=== PATIENT | male | born 1940 | race Caucasian/White ===

== ENCOUNTER 2018-07-04 10:20 | Outpatient (CLI) | payer MEDICARE | END 2018-07-04 10:21 | disposition home or self-care (01) | LOC: BICRAD 10:20 | PROVIDERS: ATTEND Internal Medicine Cardiovascular Disease | DX: I48.0 Paroxysmal atrial fibrillation (principal) | CPT/HCPCS: 36415; 71046; 80053; 80061; 84443; 85025 ==

== ENCOUNTER 2019-02-19 13:56 | Outpatient (CLI) | payer MEDICARE ==
[2019-02-19 16:00] LABS: INR-International Normal Ratio 1.1; PTT 30.6 SEC (22.9-36.1); Prothrombin Time 14.2 SEC (12.0-14.7)
[2019-02-19 16:55] LABS: #Eosinphils 0.5 thou/uL (0.0-0.7); #Lymphocytes 2.8 thou/uL (1.20-3.40); #Monocytes 1.1 thou/uL (0.11-0.59); #Neutrophils 6.6 thou/uL (1.40-6.50); %Eosinophils 4.5 % (0.0-10.0); %Lymphocytes 25.7 % (21.0-51.0); %Monocytes 10.3 % (0.0-10.0); %Neutrophils 59.5 % (42.0-75.0); Hemoglobin 15.6 g/dL (14.0-18.0); Mean Corpuscular HGB CONC 32.6 g/dL (32.0-36.0); Mean Corpuscular Volume 95.1 fL (78.0-98.0); Mean Platelet Volume 7.6 fL (7.4-10.4); Platelet Count 290 thou/uL (130-400); RBC Distribution Width 13.1 % (11.5-14.5); Red Blood Cell (RBC) Count 5.02 mill/uL (4.70-6.10)
[2019-02-19 16:56] LABS: Anion Gap 16 mmol/L (10-20); BUN (Urea Nitrogen) 15 mg/dL (8.4-25.7); Calc. Creatinine Clearance 0 mL/min (70-130); Calcium 8.9 mg/dL (7.8-10.44); Carbon Dioxide 23 mmol/L (23-31); Chloride 105 mmol/L (98-107); Estimated GFR-MDRD Greater than 90; Glucose 90 mg/dL (83-110); Potassium 4.3 mmol/L (3.5-5.1); Sodium 140 mmol/L (136-145)
== END 2019-02-19 13:57 | disposition home or self-care (01) ==
LOC: LABBT 13:56
PROVIDERS: ATTEND Internal Medicine Cardiovascular Disease
DX: Z01.812 Encounter for preprocedural laboratory examination (principal); I48.3 Typical atrial flutter
CPT/HCPCS: 80048; 85025; 85610; 85730

== ENCOUNTER 2019-02-22 05:45 | Day surgery (SDC) | payer MEDICARE ==
[2019-02-19 14:26] VITALS: BMI 40.3
[2019-02-22] MEDS ORDERED: Lidocaine 1% (PF) 30 ML VIAL ONE (07:10)
[2019-02-22] MEDS ORDERED: PROPOFOL 40 ML ONE (07:10)
--- NOTE | 2019-02-22 08:49 | OP ---
DATE OF PROCEDURE: 02/22/2019 PREPROCEDURE DIAGNOSIS: Atrial flutter. PROCEDURE PERFORMED: Direct current synchronized cardioversion. SUMMARY: Mr. Payan is a pleasant 78-year-old white gentleman, who comes to the outpatient area for a planned cardioversion. He has been on Eliquis for a long time for history of paroxysmal atrial fibrillation. Currently, he was in atrial flutter, which was a new diagnosis, so he was brought for a cardioversion. The Anesthesiology Department provided with sedation for the patient, please see their notes for details. After adequate sedation was achieved, one single synchronized shock was delivered at 100 joules successfully converting him from atrial flutter into sinus rhythm. The patient tolerated the procedure well. RECOMMENDATIONS: 1. Continue flecainide. 2. Continue full anticoagulation with Eliquis. 3. Refer to electrophysiology for consideration of an ablation. Job ID: [id number]
[2019-02-22] MEDS ORDERED: Lidocaine 1% PF 5 ML VIAL ONE (16:00)
[2019-02-22] MEDS ORDERED: PROPOFOL 200 MG/20 ML VIAL ONE (16:00)
== END 2019-02-22 09:50 | disposition home or self-care (01) ==
LOC: CCL 05:45
PROVIDERS: ATTEND Internal Medicine Cardiovascular Disease
PROC: 5A2204Z Restoration of Cardiac Rhythm, Single (ICD-10-PCS; principal; 2019-02-22)
DX: I48.3 Typical atrial flutter (principal); I48.0 Paroxysmal atrial fibrillation; G47.30 Sleep apnea, unspecified; I10 Essential (primary) hypertension; E78.5 Hyperlipidemia, unspecified; Z87.891 Personal history of nicotine dependence; Z79.01 Long term (current) use of anticoagulants; Z79.82 Long term (current) use of aspirin; Z79.899 Other long term (current) drug therapy; Z88.2 Allergy status to sulfonamides; Z88.5 Allergy status to narcotic agent; Z88.8 Allergy status to other drugs, medicaments and biological substances; Z88.7 Allergy status to serum and vaccine
CPT/HCPCS: 92960; 93005; 93010; J2001; J2704

== ENCOUNTER 2019-03-13 17:23 | Inpatient (IN) | payer MEDICARE ==
[2019-03-13 19:08] LABS: #Basophils 0.1 thou/uL (0.0-0.2); #Eosinphils 0.4 thou/uL (0.0-0.7); #Lymphocytes 3.3 thou/uL (1.20-3.40); #Monocytes 1.3 thou/uL (0.11-0.59); #Neutrophils 10.5 thou/uL (1.40-6.50); %Basophils 0.4 % (0.0-1.0); %Eosinophils 2.3 % (0.0-10.0); %Lymphocytes 21.1 % (21.0-51.0); %Monocytes 8.5 % (0.0-10.0); %Neutrophils 67.6 % (42.0-75.0); Hemoglobin 12.6 g/dL (14.0-18.0); Mean Corpuscular HGB CONC 33.1 g/dL (32.0-36.0); Mean Corpuscular Hemoglobin 31.1 pg (27.0-31.0); Mean Corpuscular Volume 93.8 fL (78.0-98.0); Mean Platelet Volume 7.3 fL (7.4-10.4); Platelet Count 323 thou/uL (130-400); RBC Distribution Width 13.6 % (11.5-14.5); Red Blood Cell (RBC) Count 4.07 mill/uL (4.70-6.10); White Blood Cell (WBC) Count 15.6 thou/uL (4.8-10.8)
[2019-03-13 19:13] LABS: INR-International Normal Ratio 1.2; PTT 27.6 SEC (22.9-36.1)
[2019-03-13 19:32] LABS: ALT (SGPT) 18 U/L (8-55); AST (SGOT) 17 U/L (5-34); Albumin 3.9 g/dL (3.4-4.8); Alkaline Phosphatase 65 U/L (40-150); Anion Gap 16 mmol/L (10-20); BUN (Urea Nitrogen) 33 mg/dL (8.4-25.7); Bilirubin, Total 0.6 mg/dL (0.2-1.2); Calc. Creatinine Clearance 0 mL/min (70-130); Calcium 9.1 mg/dL (7.8-10.44); Carbon Dioxide 24 mmol/L (23-31); Chloride 103 mmol/L (98-107); Estimated GFR-MDRD Greater than 90; Globulin 2.5 g/dL (2.4-3.5); Glucose 122 mg/dL (83-110); Potassium 4.7 mmol/L (3.5-5.1); Protein, Total 6.4 g/dL (5.8-8.1); Sodium 138 mmol/L (136-145)
[2019-03-13] MEDS ORDERED: Ondansetron PF 4 MG/2 ML Vial ONE (21:59)
[2019-03-13] MEDS ORDERED: Sodium Chloride 0.9% 100 ML ONE (21:59)
[2019-03-13] MEDS ORDERED: Pantoprazole 40 MG VIAL ONE ×2 (21:59→22:09)
[2019-03-13] MEDS ORDERED: Sodium Chloride 0.9% 1,000 ML IV SCH (22:15)
[2019-03-13] MEDS ORDERED: Ondansetron PF 4 MG/2 ML Vial SLOW IVP SCH (22:15)
[2019-03-13] MEDS ORDERED: Pantoprazole 80 MG, Admixture Fee 1 EACH in Sodium Chloride 0.9% 100 ML IVPB SCH (22:30)
[2019-03-14 01:33] VITALS: BMI 40.4
[2019-03-14] MEDS ORDERED: Ondansetron PF 4 MG/2 ML Vial IVP PRN ×2 (01:57→11:00)
[2019-03-14] MEDS ORDERED: HYDROcodone/Acetaminophen 5/325 mg Tablet PO PRN ×2 (01:57)
[2019-03-14] MEDS ORDERED: Ondansetron ODT 4 MG TAB SL PRN (01:57)
[2019-03-14] MEDS ORDERED: Acetaminophen 325 MG TAB PO PRN (01:57)
[2019-03-14] MEDS ORDERED: Sodium Chloride 0.9% 1,000 ML IV SCH (02:00)
[2019-03-14 05:03] LABS: Hemoglobin 10.6 g/dL (14.0-18.0); Mean Corpuscular HGB CONC 32.9 g/dL (32.0-36.0); Mean Corpuscular Hemoglobin 30.8 pg (27.0-31.0); Mean Corpuscular Volume 93.5 fL (78.0-98.0); Mean Platelet Volume 7.2 fL (7.4-10.4); Platelet Count 253 thou/uL (130-400); RBC Distribution Width 13.7 % (11.5-14.5); Red Blood Cell (RBC) Count 3.46 mill/uL (4.70-6.10); White Blood Cell (WBC) Count 13.5 thou/uL (4.8-10.8)
[2019-03-14 05:20] LABS: Band 1 % (5-11); Hypochromia SLIGHT = 6-15 cells (100X) (0-5/hpf); Lymphocytes 16 % (21-51); MDiff Complete? YES; Monocytes 2 % (0-10); Neutrophil 81 % (42-75); Platelet Morphology Comment Appears Adequate
[2019-03-14] MEDS ORDERED: Citrucel 500 MG TAB PO PRN ×2 (07:43→08:16)
[2019-03-14] MEDS ORDERED: Furosemide 20 MG TAB PO SCH (07:45)
[2019-03-14] MEDS ORDERED: Metoprolol Tartrate 50 MG TAB PO SCH (09:00)
[2019-03-14] MEDS ORDERED: BERBERINE PO SCH (09:00)
[2019-03-14] MEDS ORDERED: VIT D3 VIT K PO SCH (09:00)
[2019-03-14] MEDS ORDERED: HOPS PO SCH (09:00)
[2019-03-14] MEDS ORDERED: Non-Formulary Item 1 EACH (Omega-3 Fatty Acids/Fish Oil [Fish Oil 1,000 Mg Capsule] 2 CAP PO SCH (09:00)
[2019-03-14] MEDS: Flecainide 50 MG TAB PO SCH ×2 (09:04→20:04)
[2019-03-14] MEDS: Pantoprazole 40 MG VIAL IVP SCH ×2 (09:06→20:05)
[2019-03-14] MEDS: Furosemide 20 MG TAB PO SCH (09:06)
[2019-03-14] MEDS: Metoprolol Tartrate 50 MG TAB PO SCH ×2 (09:06→20:05)
[2019-03-14] MEDS ORDERED: Acetaminophen 500 MG TAB PO PRN (11:00)
[2019-03-14] MEDS ORDERED: Ondansetron ODT 4 MG TAB PO PRN (11:00)
[2019-03-14] MEDS: Fish Oil 1,000 MG CAP PO SCH ×2 (11:13→20:03)
[2019-03-14 12:35] LABS: Hemoglobin 10.1 g/dL (14.0-18.0)
[2019-03-14 16:25] LABS: Bilirubin Negative (Negative); Blood, Urine Negative (Negative); Clarity CLEAR (Clear); Glucose, Urine (Dipstick) Negative (Negative); Leukocyte Small (Negative); Nitrite Negative (Negative); Protein, Urine (Dipstick) Negative (Neg-Trace); Specific Gravity, Urine 1.025 (1.002-1.036); Urobilinogen 0.2 mg/dL (0.2-1.0)
[2019-03-14 16:27] LABS: Bacteria/HPF None Seen HPF (None Seen); Hyaline Casts/LPF 0-3 HYALINE CAST LPF (0-3 Hyaline); RBC/HPF 0-3 HPF (0-3); Squamous Epithelial 0-3 HPF (0-3); WBC/HPF 0-3 HPF (0-3)
[2019-03-14 16:41] LABS: Urine Culture Reflex Yes Yes
--- NOTE | 2019-03-14 19:37 | HP ---
CHIEF COMPLAINT: Black tarry stools. HISTORY OF PRESENT ILLNESS: The patient had 1-2 black tarry stools, is on Eliquis, has a history of anal fissure and gastroesophageal reflux disease with prior ulceration on EGD in the past, only had minor cough for ancillary symptoms recently, denies any shortness of breath, chest pain, or fatigue, presented to emergency department for evaluation, was admitted for observation and trending of hemoglobin. At bedside, the patient has no acute complaints other than some right lower and upper quadrant pain, has not had a bowel movement since admission. ALLERGIES: 1. SULFA. 2. HYDROCODONE. 3. VICODIN. 4. BACTRIM. 5. HORSE PROTEIN. PAST MEDICAL HISTORY: 1. Coronary artery disease history. 2. Gastroesophageal reflux disease. 3. Iron deficiency anemia. 4. History of hyperlipidemia. 5. History of renal calculi. 6. Gout. 7. Hypertension. 8. History of anal fissures. 9. Paroxysmal atrial fibrillation, currently active. 10. Obstructive sleep apnea. 11. Varicose veins in bilateral lower extremities. 12. Last colonoscopy in 2016. HOME MEDICATIONS: 1. Allopurinol 300 mg once daily. 2. Furosemide 20 mg daily. 3. Atorvastatin 40 mg daily. 4. Ramipril 5 mg daily. 5. Ferrous sulfate 325 mg once a day. 6. Pepcid 20 mg p.r.n. heartburn. 7. Metoprolol 50 mg twice daily. 8. Citrucel 500 mg p.r.n. 9. Amiodarone 100 mg, recently changed to flecainide 50 mg twice daily. 10. Eliquis 5 mg. PAST SURGICAL HISTORY: 1. The patient is status post meniscectomy in 1970. 2. Carpal tunnel release in 1994. 3. Anal fissure removal in 2000. 4. Partial left adrenalectomy, benign findings. 5. Cataract surgery bilaterally. SOCIAL HISTORY: The patient is a nonsmoker. Lives with his spouse. Retired teacher. REVIEW OF SYSTEMS: Full formal review of systems: No fevers. No chills. No headache. No vision changes. Positive cough. No runny nose. No chest pains. No palpitations. No shortness of breath. Does have irregular pulse. Abdomen is mildly tender. No diarrhea or constipation. Positive dark tarry stools. Lower extremities with baseline varicose veins with edema. The patient denies any confusion or headaches. LABORATORY DATA: Admission hemoglobin of 12.6, trended last at noon today is 10.1, platelet count of 253, neutrophil percent of 81 on 13.5 white blood cell. INR of 1.2. Sodium of 138, potassium of 4.7, CO2 of 24, BUN of 33, creatinine of 0.82, glucose of 122, AST of 17, ALT of 18, albumin of 3.9. UA with reflex culture pending. The patient is O positive. Antibody screen negative. PHYSICAL EXAMINATION: VITAL SIGNS: Temperature of 98.5, pulse of 76, respiratory rate of 18, oxygen saturation 95% on room air, blood pressure of 112/64. GENERAL: The patient is alert and oriented, in no acute distress. HEENT: Head is normocephalic and atraumatic. Extraocular movements are intact. Sclerae are white. Oral mucosa is moist. Poor dentition noted. NECK: Supple. HEART: Irregularly irregular with no murmurs auscultated. LUNGS: Clear to auscultation bilaterally. Diminished secondary to body habitus. No wheezes, rhonchi, or rales. ABDOMEN: Protuberant. Bowel sounds are normal throughout. Minimal tenderness to right upper quadrant. No rebound or guarding present. EXTREMITIES: Lower extremities without cyanosis or formal edema. Varicose veins are present at baseline. NEUROLOGIC: The patient is alert and oriented x3. No focal deficits. Speech is normal. ASSESSMENT: 1. GI bleed. 2. Atrial fibrillation, on anticoagulation. 3. Obstructive sleep apnea. 4. Hypertension. 5. History of anal fissure. 6. Leukocytosis. 7. Anemia, currently felt to be secondary to GI bleed. He does have underpinnings of chronic iron deficiency anemia. 8. Gastroesophageal reflux disease. PLAN: Continuing the patient on therapy for acid reflux, currently from Pepcid to Protonix b.i.d. IV. Continuing home blood pressure medication. The patient bolused overnight with IV fluids. Appears to be appropriately hydrated. Volume no longer contracted, however, the patient remains with leukocytosis. Checking urinalysis. If normal, may represent a possible diverticulitis picture with leading to black and tarry, however, we will default to GI consultation for recommendations for upper and lower scopes. The patient does say he had a mild flare-up of acid reflux prior to admission. Continuing the patient's rhythm and volume control with Lasix and flecainide. The patient is on statin, holding any anticoagulation secondary to possible GI bleed as above. The patient is currently taking clear liquids in anticipation of possible scopes. We will follow up on hemoglobin trend. Continue CPAP as needed for obstructive sleep apnea. Monitor the patient's blood pressure and adjust accordingly. Job ID: [id number] MTDD
[2019-03-14 19:58] LABS: Hemoglobin 9.9 g/dL (14.0-18.0)
[2019-03-14] MEDS: Atorvastatin Calcium 40 MG TAB PO SCH (20:04)
[2019-03-14] MEDS: Ramipril 5 MG CAP PO SCH (20:05)
[2019-03-14] MEDS ORDERED: Ramipril 5 MG CAP PO SCH (21:00)
[2019-03-14] MEDS ORDERED: Atorvastatin Calcium 40 MG TAB PO SCH (21:00)
--- NOTE | 2019-03-15 03:58 | CON ---
DATE OF CONSULTATION: 03/14/2019 REASON FOR CONSULTATION: History of melena. HISTORY OF PRESENT ILLNESS: Marco Payan is a very pleasant 79-year-old male, who is living in [place] until a year ago. The patient has a very long medical history. Apparently, he has had cardiac arrhythmia for many years and he has had ablation done in the past. He had a cardioversion done by Dr. Davey Blake about 2 weeks ago. Subsequently, he was placed on Eliquis. The patient has history of bleeding ulcer in 2017. He does not remember what kind of anticoagulation took at that time. He had an EGD and colonoscopy in 2017 when he was living in [place]. The patient has a longstanding history of cardiac problems and he has had an ablation done in the past. He also has history of long-standing kidney stones with invasive procedures in the past. All these were done in [place]. The patient had an episode of black tarry stools yesterday. He does have nausea. No history of vomiting. No abdominal pain. He had the same problem in 2017 and denies to come to the hospital because of the bleeding ulcer before. At the time of the consultation, he appears very comfortable. He is awake, alert, and communicative. He does not complain of abdominal pain or dyspepsia. No history of heartburn. No indigestion. He has had no stool today. The admitting hemoglobin showed hemoglobin 12.6 and today he had 2 more serial H and H done. The last one was 10.1 this afternoon. Hematocrit 30.7. He has no relevant symptoms. ALLERGIES: 1. CODEINE. 2. HYDROCODONE. 3. SULFA. 4. VICODIN. SOCIAL HISTORY: The patient is . He does not smoke or drink alcohol. MEDICAL ILLNESSES: 1. Obesity. 2. Longstanding history of cardiac arrhythmia. 3. Kidney stone. 4. Diverticulitis. 5. Bleeding ulcer in 2017. 6. Kidney stones over the years. 7. Carpal tunnel syndrome. 8. Cataract surgery. 9. Anal fistula. 10. Cardiac ablation. 11. Cardiac cardioversion two weeks ago. 12. Vasectomy. MEDICATION LIST: Reviewed, which includes 1. Allopurinol. 2. Atorvastatin. 3. Eliquis. 4. Fish oil. 5. Flecainide. 6. Furosemide. 7. Iron supplement. 8. Metoprolol. 9. Ramipril. 10. Vitamin D3. 11. Aspirin. 12. Pepcid. REVIEW OF SYSTEMS: A 10-point system review; [employer] OPERATOR: No dizziness. No headache. No syncope. No TIA. RESPIRATORY: No history of chronic coughing, hemoptysis, or dyspnea. CARDIOVASCULAR: No chest pain. No palpitation. No dyspnea, orthopnea, or PND. GI: No abdominal pain. No nausea or vomiting. History of black tarry stool yesterday. : No dysuria, hematuria, or frequency of urination. MUSCULOSKELETAL: Not known. ENDOCRINE: Not known. NEUROPSYCHIATRY: Not remarkable. PHYSICAL EXAMINATION: GENERAL: Appears comfortable. VITAL SIGNS: Pulse is 65 and blood pressure 121/69. EYES: Conjunctivae clear. NECK: Supple. No adenitis or thyromegaly noted. CARDIOVASCULAR: First and second heart sounds heard. LUNGS: Clear to auscultation. ABDOMEN: Soft. Abdomen is nontender. No organomegaly or masses. Bowel sounds normal. EXTREMITIES: Reveal no edema. CENTRAL NERVOUS SYSTEM: Grossly within normal limits. LABORATORY DATA: The lab data shows WBC of 15,600, hemoglobin 12.6, hematocrit 38.4 dropped down to 10.1 and 30.7 respectively. Platelet count is normal at 253, polymorphs 82, bands one, lymphocytes 16. Serum chemistry is normal except for BUN of 33, creatinine 0.82, glucose 122, calcium 9.1. LFTs normal. Albumin 3.9. CLINICAL IMPRESSION: 1. A 79-year-old male with cardiac arrhythmia, status post cardioversion two weeks ago. He is taking Eliquis over the last 2 weeks. He has melena and he has had a bleeding ulcer in 2017. The patient most likely has recurrent ulcerative bleeding. He is off Eliquis since last night. 2. Obesity. 3. Cardiac arrhythmia. 4. Kidney stones. 5. Hyperlipidemia. RECOMMENDATIONS: 1. Clear liquid diet. 2. EGD tomorrow. After he is off Eliquis for 48 hours. It was explained above. He is agreeable. I will plan for EGD tomorrow which will be done by Dr. Jan London. In the meantime, I would recommend serial H and H and transfuse p.r.n. Also will continue the PPI. Job ID: [id number]
[2019-03-15 05:42] LABS: #Eosinphils 0.7 thou/uL (0.0-0.7); #Lymphocytes 2.6 thou/uL (1.20-3.40); #Monocytes 0.8 thou/uL (0.11-0.59); #Neutrophils 7.2 thou/uL (1.40-6.50); %Lymphocytes 22.9 % (21.0-51.0); %Monocytes 7.1 % (0.0-10.0); Hemoglobin 10.2 g/dL (14.0-18.0); Mean Corpuscular HGB CONC 33.6 g/dL (32.0-36.0); Mean Corpuscular Hemoglobin 31.9 pg (27.0-31.0); Mean Corpuscular Volume 94.9 fL (78.0-98.0); Mean Platelet Volume 7.1 fL (7.4-10.4); Platelet Count 277 thou/uL (130-400); White Blood Cell (WBC) Count 11.3 thou/uL (4.8-10.8)
[2019-03-15 06:20] LABS: ALT (SGPT) 14 U/L (8-55); AST (SGOT) 15 U/L (5-34); Albumin 3.4 g/dL (3.4-4.8); Alkaline Phosphatase 61 U/L (40-150); Anion Gap 15 mmol/L (10-20); BUN (Urea Nitrogen) 15 mg/dL (8.4-25.7); Bilirubin, Total 0.7 mg/dL (0.2-1.2); Calc. Creatinine Clearance 139 mL/min (70-130); Calcium 8.4 mg/dL (7.8-10.44); Carbon Dioxide 21 mmol/L (23-31); Chloride 103 mmol/L (98-107); Estimated GFR-MDRD Greater than 90; Globulin 2.4 g/dL (2.4-3.5); Glucose 146 mg/dL (83-110); Potassium 3.8 mmol/L (3.5-5.1); Protein, Total 5.8 g/dL (5.8-8.1); Sodium 135 mmol/L (136-145)
[2019-03-15] MEDS: Metoprolol Tartrate 50 MG TAB PO SCH ×2 (06:58→20:08)
[2019-03-15] MEDS: Fish Oil 1,000 MG CAP PO SCH ×2 (07:10→20:06)
[2019-03-15] MEDS: Flecainide 50 MG TAB PO SCH ×2 (08:15→20:07)
[2019-03-15] MEDS: Pantoprazole 40 MG VIAL IVP SCH (08:19)
[2019-03-15] MEDS: OSTERA PO SCH (11:23)
--- NOTE | 2019-03-15 15:05 | OP ---
DATE OF PROCEDURE: 03/15/2019 PROCEDURE PERFORMED: Esophagogastroduodenoscopy with biopsy. PREOPERATIVE DIAGNOSIS: Gastrointestinal bleed on Eliquis. DESCRIPTION OF PROCEDURE: Informed consent was obtained from the patient. He was sedated with total intravenous anesthesia. The bite block was placed and the endoscope was advanced easily to the second portion of the duodenum and retroflexion was performed in the stomach. The esophagus was normal. The GE junction was normal. There was erosive antral gastritis with 4 small ulcers measuring 5 mm in diameter. Biopsies were obtained from the stomach to rule out H. pylori. There was erythematous gastritis in the antrum as well. The pylorus and first and second portions of the duodenum were normal. Retroflex views in the stomach were normal. IMPRESSION: 1. Four small ulcers measuring 5 mm in size, which were crated with a white base. This is in the setting of erythematous and erosive antral gastritis. Biopsies were obtained to rule out Helicobacter pylori. I suspect this is the most likely bleeding source. 2. Otherwise normal esophagogastroduodenoscopy. RECOMMENDATIONS: 1. Proton pump inhibitor by mouth. 2. Advance diet. 3. Hold Eliquis for a few days. 4. Check the hemoglobin in the morning. Job ID: [id number]
--- NOTE | 2019-03-15 17:11 | PRG ---
DATE OF SERVICE: 03/15/2019 HISTORY OF PRESENT ILLNESS: The patient has had no further bloody stools. He states that he has had a history of renal calculi. He has had some flank pain more recently regarding findings of blood in urine. Did verbalize understanding regarding downtrend of leukocytosis. Denies any fever or chills. Abdomen pain has resolved with proton pump inhibitor, is awaiting the EGD this morning. At the time of exam, I reviewed Dr. London's report of several bleeding gastric ulcers and biopsies pending with recommendation to hold Eliquis for several more days and trend hemoglobin overnight with possible discharge tomorrow. PHYSICAL EXAMINATION: VITAL SIGNS: This morning of temperature 98.3, pulse of 75, respiratory rate of 19, oxygen saturation 95% on room air, and blood pressure of 117/70. GENERAL: The patient is alert and oriented. No acute distress. HEENT: Head is normocephalic and atraumatic. Extraocular movements are intact. Oral mucosa is moist. Dentition is poor. HEART: Irregularly irregular rate and rhythm. No murmurs auscultated. LUNGS: Clear to auscultation bilaterally. No rubs or wheezes. ABDOMEN: Protuberant, soft, and nontender. Positive bowel sounds throughout. EXTREMITIES: Lower extremities without cyanosis or edema. NEUROLOGIC: The patient is alert and oriented x3. No focal deficits. Speech is normal. LABORATORY DATA: Hemoglobin this morning of 10.9, white blood cell count trend down to 11.3, platelet count of 277. No longer left shift, neutrophil percent of 64%. Sodium of 135, potassium of 3.8, CO2 of 21, and creatinine of 0.78. Currently, no growth at 24 hours on the urinalysis. ASSESSMENT AND PLAN: Gastric ulcer; atrial fibrillation, on prior anticoagulation; obstructive sleep apnea; hypertension; gastroesophageal reflux disease; anemia of blood loss; leukocytosis, following up on urine culture final read. Continuing proton pump inhibitor has been transitioned from IV to oral. Follow up GI's recommendations for restarting anticoagulation likely next week on outpatient followup acutely. Continuing the patient's CPAP. May use home equipment. Continue the patient's other home medications regarding hypertension and flecainide and metoprolol for rate control. The patient currently on full liquid likely we will advance tomorrow prior to discharge. Follow up on biopsy reports when available. Dr. Will Abreu should be rounding this holiday weekend, will handoff. Job ID: [id number]
[2019-03-15] MEDS: Atorvastatin Calcium 40 MG TAB PO SCH (20:06)
[2019-03-15] MEDS: Ramipril 5 MG CAP PO SCH (20:08)
[2019-03-16] MEDS: Metoprolol Tartrate 50 MG TAB PO SCH (08:47)
[2019-03-16] MEDS: Furosemide 20 MG TAB PO SCH (08:48)
[2019-03-16] MEDS: Flecainide 50 MG TAB PO SCH (08:48)
[2019-03-16] MEDS: Fish Oil 1,000 MG CAP PO SCH (08:52)
--- NOTE | 2019-03-16 09:12 | DIS ---
DATE OF ADMISSION: 03/14/2019 DATE OF DISCHARGE: 03/16/2019 PRIMARY CARE PHYSICIAN: Sean Leonard MD. ADMISSION DIAGNOSES: Upper gastrointestinal bleed, on anticoagulation. OTHER DIAGNOSES: 1. Atrial fibrillation. 2. Obstructive sleep apnea. 3. Hypertension. 4. Anemia. CONSULTATIONS: Dr. Garcia and Dr. London for Gastroenterology. PROCEDURES: Upper endoscopy revealing 4 small ulcerations and erosive antral gastritis. HOSPITAL COURSE: This is a 79-year-old gentleman with a history of atrial fibrillation, coronary artery disease, gastroesophageal reflux disease, iron deficiency anemia, hypertension, obstructive sleep apnea, who presented to the emergency department with 1 to 2 black tarry stools. He had been on Eliquis for his paroxysmal atrial fibrillation. He had a history of ulcerations and an EGD in the past. He had been on H2 blockers prior to admission. He is admitted, started on IV Protonix. On admission, he states that his symptoms improved. He was seen by Dr. Garcia for consultation and then Dr. London for EGD, which revealed the 4 ulcerations as described above. Dr. London recommended holding Eliquis for few days and continuing proton pump inhibition. The patient remained stable throughout his hospitalization. His blood count improved following the EGD and he was stable for discharge on the day of discharge. DISCHARGE PHYSICAL EXAMINATION: VITAL SIGNS: Temperature 98.0, pulse of 58 to 64, respirations 17, blood pressure 101/60, and pulse ox 93% on room air. GENERAL: He is awake and alert, in no acute distress. Speech is clear. NECK: Supple. HEART: Regular rate and rhythm. LUNGS: Clear. ABDOMEN: Soft, obese, nontender, and nondistended. No hepatosplenomegaly. DISCHARGE LABORATORY DATA: White blood cell count 11.3, hemoglobin and hematocrit of 10.2 and 30.4 with slight macrocytic indices. DISCHARGE MEDICATIONS: Include; 1. Tylenol p.r.n. 2. Lipitor 40 mg daily. 3. Fish oil 2000 mg b.i.d. 4. Flecainide 50 mg b.i.d. 5. Citrucel p.r.n. 6. Metoprolol 50 mg b.i.d. 7. Protonix 40 mg b.i.d. 8. Ramipril 5 mg daily. FOLLOWUP INSTRUCTIONS: The patient to follow up with Dr. Leonard in [address] London in 1 to 2 weeks as well as continuing his followups with Dr. Blake and Dr. Flood for his atrial fibrillation. Job ID: [id number]
[2019-03-16 12:08] VITALS: BP 121/71; TEMP 98.6
== END 2019-03-16 12:19 | disposition home or self-care (01) | DRG 378 ==
LOC: ERS 17:23 → T4-B 03-14 00:24
PROVIDERS: ADMIT Family Medicine; ATTEND Family Medicine
PROC: 0DB78ZX Excision of Stomach, Pylorus, Via Natural or Artificial Opening Endoscopic, Diagnostic (ICD-10-PCS; principal; 2019-03-15)
DX: K29.01 Acute gastritis with bleeding (principal); Z68.41 Body mass index [BMI] 40.0-44.9, adult; M10.9 Gout, unspecified; I25.10 Atherosclerotic heart disease of native coronary artery without angina pectoris; D50.9 Iron deficiency anemia, unspecified; K21.9 Gastro-esophageal reflux disease without esophagitis; E78.5 Hyperlipidemia, unspecified; I10 Essential (primary) hypertension; I48.0 Paroxysmal atrial fibrillation; G47.33 Obstructive sleep apnea (adult) (pediatric); N20.0 Calculus of kidney; E66.9 Obesity, unspecified; Z98.52 Vasectomy status; Z88.5 Allergy status to narcotic agent; Z88.2 Allergy status to sulfonamides; Z88.8 Allergy status to other drugs, medicaments and biological substances; Z79.01 Long term (current) use of anticoagulants; Z79.899 Other long term (current) drug therapy; Z79.82 Long term (current) use of aspirin
CPT/HCPCS: 36415; 36416; 80053; 81001; 85025; 85610; 85730; 86850; 86900; 86901; 87086; C9113; J2405; J3490

== ENCOUNTER 2019-03-20 14:00 | Outpatient (CLI) | payer MEDICARE | END 2019-03-20 14:01 | disposition home or self-care (01) | LOC: LABBT 14:00 | PROVIDERS: ATTEND Internal Medicine Cardiovascular Disease | DX: Z01.818 Encounter for other preprocedural examination (principal); I48.91 Unspecified atrial fibrillation | CPT/HCPCS: 93005; 93010 ==

== ENCOUNTER 2019-04-03 05:49 | Observation (INO) | payer MEDICARE ==
[2019-03-20 15:02] VITALS: BMI 40.1
[2019-04-03] MEDS ORDERED: Heparin 10,000 UNITS/1 ML VIAL ONE ×3 (06:53→10:43)
[2019-04-03] MEDS ORDERED: Fentanyl 100 MCG/2 ML VIAL ONE ×3 (07:52→13:19)
[2019-04-03] MEDS ORDERED: SUGAMMADEX SODIUM 200 MG/2 ML VIAL ONE (07:59)
[2019-04-03] MEDS ORDERED: Heparin 25,000 units/D5W 500 ML ONE (09:25)
[2019-04-03] MEDS ORDERED: Isoproterenol 0.2 MG/1 ML AMP ONE (09:45)
[2019-04-03] MEDS ORDERED: Rocuronium Bromide 50 MG/5 ML VIAL ONE (10:46)
[2019-04-03] MEDS ORDERED: Protamine Sulfate 50 MG/5 ML VIAL ONE (12:53)
[2019-04-03] MEDS ORDERED: Citrucel 500 MG TAB PO SCH (13:30)
[2019-04-03] MEDS ORDERED: Rocuronium Bromide 10 MG/ML (10ML VIAL) ONE (15:05)
[2019-04-03] MEDS ORDERED: Lidocaine 2% PF 5 ML VIAL ONE (15:05)
[2019-04-03] MEDS ORDERED: Ondansetron PF 4 MG/2 ML Vial ONE (15:05)
[2019-04-03] MEDS ORDERED: Heparin 30,000 units/30 ml VIAL ONE (15:05)
[2019-04-03] MEDS ORDERED: PROPOFOL 200 MG/20 ML VIAL ONE (15:05)
[2019-04-03] MEDS ORDERED: Dexamethasone 20 MG/5 ML VIAL ONE (15:05)
[2019-04-03] MEDS ORDERED: Acetaminophen/Codeine 30-300mg Tablet PO PRN ×2 (15:30)
--- NOTE | 2019-04-03 16:13 | OP ---
DATE OF PROCEDURE: 04/03/2019 PROCEDURES PERFORMED: Electrophysiology study and radiofrequency ablation. REASON FOR PROCEDURE: Mr. Payan is a 79-year-old man with prior history of paroxysmal atrial fibrillation, previously suppressed with flecainide. Repeat cardioversions were performed since 2008. He has history of normal LVEF. No ischemia or scar and he is on chronic anticoagulation Eliquis. He also been on low-dose amiodarone and in the past prior to this with atypical atrial flutter noted at that time. Here for pulmonary venous isolation procedure. DESCRIPTION OF PROCEDURE: The patient received propofol by Anesthesia specialist. After adequate level of sedation achieved, the left and right femoral venous area was prepped, draped, and anesthetized with subcutaneous lidocaine and under ultrasound guidance both femoral veins were cannulated x2. On the left side, an 11-Hebrew sheath was used to advance the intracardiac echocardiogram probe into the right atrium to monitor transseptal procedure or any effusions. On the left side, also a Preface sheath was advanced, later advanced a duodeca catheter to the coronary sinus and right atrium position. On the right side, two SL1 sheaths were advanced, through the first SL1 sheath a ThermoCool SFST catheter was used to obtain right atrial CS and His bundle map. Following that with a second SL1 sheath, transseptal puncture was performed under ultrasound monitoring. IV heparin was given at this point and the ACT was checked and heparin drip was adjusted to maintain ACT over 350. Following that, the wire was placed through the first transseptal sheath and the second SL1 sheath with the ThermoCool SFST catheter was advanced adjacent to the wire to the left atrium. The wire was exchanged again to the another SL1 sheath, achieving two transseptal access. A 20-pole Lasso catheter was advanced to the left atrium and 3D map of the left atrium was obtained. Standard pulmonary venous isolation procedure was performed. Also, attempts were made to isolate the posterior wall due to proximity to esophagus. Now, complete isolation was achieved. The Isuprel was administered at 10 mcg and any reconnections reablated. The total number of lesions were 66. Total duration of ablation 41 minutes 14 seconds. At the end of the case, basic EP study was obtained with the flutter following findings. Baseline cycle length was in sinus rhythm at 913 milliseconds, IL 135, QRS 89, QT 412, AH 118, and HV 54 milliseconds. AV Wenckebach cycle length was 280 milliseconds. Retrograde Wenckebach cycle length was 400 milliseconds. AV esau ERP was 600/320 or less. Concentric retrograde VA conduction was noted. No evidence of dual AV node physiology was seen. Burst atrial pacing in the end of the case did not induce atrial arrhythmias. Throughout the case, esophageal temperature probe was used to monitor esophageal temperature to avoid excessive heating of the esophagus with ablations. At the end of the case, the sheaths were pulled back to the right side. Protamine was administered to reverse the anticoagulant effect. The Vascade closure was performed in the four veins. CONCLUSION: 1. Successful isolation of all 4 pulmonary veins. 2. Successful isolation of the posterior wall achieved with superior and inferior lines. 3. No evidence of accessory pathway. No dual AV esau physiology. No additional atrial arrhythmias were inducible with EP study. PLAN: Continue anticoagulation. Monitor for recurrent arrhythmias. Hold flecainide for now. Job ID: [id number]
[2019-04-03] MEDS: Metoprolol Tartrate 50 MG TAB PO SCH (20:02)
[2019-04-03] MEDS: Fish Oil 1,000 MG CAP PO SCH (20:03)
[2019-04-03] MEDS: Apixaban 5 MG TAB PO SCH (20:03)
[2019-04-03] MEDS ORDERED: Metoprolol Tartrate 50 MG TAB PO PRN (20:04)
[2019-04-03] MEDS ORDERED: Ramipril 5 MG CAP PO SCH (21:00)
[2019-04-03] MEDS ORDERED: Atorvastatin Calcium 40 MG TAB PO SCH (21:00)
[2019-04-04 08:07] VITALS: BP 95/52; TEMP 98.1
[2019-04-04] MEDS ORDERED: OSTERA PO SCH (09:00)
[2019-04-04] MEDS ORDERED: Allopurinol 300 MG TAB PO SCH (09:00)
[2019-04-04] MEDS ORDERED: Ferrous Sulfate 325 MG TAB PO SCH (09:00)
[2019-04-04] MEDS ORDERED: Furosemide 20 MG TAB PO SCH (09:00)
[2019-04-04] MEDS: Apixaban 5 MG TAB PO SCH (09:15)
[2019-04-04] MEDS: Fish Oil 1,000 MG CAP PO SCH (09:15)
[2019-04-04] MEDS: Metoprolol Tartrate 50 MG TAB PO SCH (09:16)
--- NOTE | 2019-04-05 21:17 | EKG ---
Test Reason : Blood Pressure : / mmHG Vent. Rate : 083 BPM Atrial Rate : 083 BPM P-R Int : 172 ms QRS Dur : 108 ms QT Int : 412 ms P-R-T Axes : 067 047 049 degrees QTc Int : 484 ms Normal sinus rhythm Prolonged QT Abnormal ECG When compared with ECG of 20-MAR-2019 14:51, No significant change was found Confirmed by James ARENAS ([id number]) on 04/05/2019 9:16:55 PM Referred By: [facility] Confirmed By:James ARENAS
--- NOTE | 2019-04-05 21:21 | EKG ---
Test Reason : STAT Blood Pressure : / mmHG Vent. Rate : 132 BPM Atrial Rate : 132 BPM P-R Int : 088 ms QRS Dur : 090 ms QT Int : 326 ms P-R-T Axes : 000 050 052 degrees QTc Int : 483 ms Sinus tachycardia with short GA with occasional Premature ventricular complexes ST elevation consider inferior injury or acute infarct * ACUTE OK * Abnormal ECG When compared with ECG of 03-APR-2019 13:46, (Unconfirmed) Premature ventricular complexes are now Present Vent. rate has increased BY [address] elevation now present in Inferior leads Confirmed by James ARENAS ([id number]) on 04/05/2019 9:21:04 PM Referred By: [facility] Confirmed By:James ARENAS
--- NOTE | 2019-04-05 21:23 | EKG ---
Test Reason : Blood Pressure : / mmHG Vent. Rate : 069 BPM Atrial Rate : 069 BPM P-R Int : 164 ms QRS Dur : 112 ms QT Int : 416 ms P-R-T Axes : 057 032 042 degrees QTc Int : 445 ms Poor data quality, interpretation may be adversely affected Normal sinus rhythm Normal ECG When compared with ECG of 03-APR-2019 19:47, (Unconfirmed) Premature ventricular complexes are no longer Present Vent. rate has decreased BY [address] no longer elevated in Inferior leads Confirmed by James ARENAS ([id number]) on 04/05/2019 9:22:40 PM Referred By: [facility] Confirmed By:James ARENAS
== END 2019-04-04 10:58 | disposition home or self-care (01) ==
LOC: CCL 05:49 → 2SW 13:11
PROVIDERS: ADMIT Internal Medicine Cardiovascular Disease; ATTEND Internal Medicine Cardiovascular Disease
PROC: 4A023FZ Measurement of Cardiac Rhythm, Percutaneous Approach (ICD-10-PCS; principal; 2019-04-03)
PROC: 4A0234Z Measurement of Cardiac Electrical Activity, Percutaneous Approach (ICD-10-PCS; 2019-04-03)
PROC: 02583ZZ Destruction of Conduction Mechanism, Percutaneous Approach (ICD-10-PCS; 2019-04-03)
PROC: 02K83ZZ Map Conduction Mechanism, Percutaneous Approach (ICD-10-PCS; 2019-04-03)
DX: I48.0 Paroxysmal atrial fibrillation (principal); I48.4 Atypical atrial flutter; G47.30 Sleep apnea, unspecified; I10 Essential (primary) hypertension; E78.5 Hyperlipidemia, unspecified; N28.9 Disorder of kidney and ureter, unspecified; Z99.89 Dependence on other enabling machines and devices; Z79.01 Long term (current) use of anticoagulants; Z88.2 Allergy status to sulfonamides; Z88.5 Allergy status to narcotic agent; Z88.7 Allergy status to serum and vaccine; Z88.1 Allergy status to other antibiotic agents; Z79.899 Other long term (current) drug therapy
CPT/HCPCS: 76942; 85347 ×2; 93005 ×2; 93613; 93623; 93656; 93662; C1731; C1732 ×3; C1759; C1769; G0378; 93010; J1644; J2720; J3010

== ENCOUNTER 2019-04-24 11:44 | Day surgery (SDC) | payer MEDICARE ==
[2019-04-23 16:15] VITALS: BMI 39.0
[2019-04-24 15:05] LABS: #Eosinphils 0.4 thou/uL (0.0-0.7); #Lymphocytes 2.8 thou/uL (1.20-3.40); #Monocytes 0.9 thou/uL (0.11-0.59); %Basophils 0.2 % (0.0-1.0); %Eosinophils 4.3 % (0.0-10.0); %Lymphocytes 27.7 % (21.0-51.0); %Monocytes 8.5 % (0.0-10.0); %Neutrophils 59.3 % (42.0-75.0); Hemoglobin 13.4 g/dL (14.0-18.0); Mean Corpuscular Hemoglobin 29.5 pg (27.0-31.0); Mean Corpuscular Volume 92.2 fL (78.0-98.0); Mean Platelet Volume 8.8 fL (7.4-10.4); Platelet Count 338 thou/uL (130-400); RBC Distribution Width 13.9 % (11.5-14.5); Red Blood Cell (RBC) Count 4.55 mill/uL (4.70-6.10); White Blood Cell (WBC) Count 10.1 thou/uL (4.8-10.8)
[2019-04-24 15:13] LABS: INR-International Normal Ratio 1.3; PTT 31.9 SEC (22.9-36.1); Prothrombin Time 16.3 SEC (12.0-14.7)
[2019-04-24] MEDS ORDERED: PROPOFOL 20 ML ONE (16:07)
[2019-04-24 16:47] LABS: Anion Gap 13 mmol/L (10-20); BUN (Urea Nitrogen) 15 mg/dL (8.4-25.7); Calc. Creatinine Clearance 120 mL/min (70-130); Calcium 8.8 mg/dL (7.8-10.44); Carbon Dioxide 27 mmol/L (23-31); Chloride 102 mmol/L (98-107); Estimated GFR-MDRD 81; Glucose 84 mg/dL (83-110); Sodium 138 mmol/L (136-145)
--- NOTE | 2019-04-24 21:27 | OP ---
DATE OF PROCEDURE: 04/24/2019 PROCEDURE PERFORMED: Cardioversion report. REASON FOR PROCEDURE: Mr. Payan is a very pleasant 79-year-old man with prior history of atrial fibrillation post pulmonary venous isolation procedure on 04/03/2019. He had early recurrence of atrial flutter prompting continued flecainide use and he is here for a cardioversion. He has been anticoagulated with Eliquis without fail ever since procedure. DESCRIPTION OF PROCEDURE: The patient received propofol by Anesthesia specialist. After adequate level of sedation achieved, a synchronized 100-joule shock promptly converted the patient back to sinus rhythm. The rate and rhythm are about 75 beats per minute. The patient tolerated the procedure well. No complications noted. PLAN: Continue oral anticoagulation and flecainide for now. Routine followup as planned. Job ID: [id number]
== END 2019-04-24 17:34 | disposition home or self-care (01) ==
LOC: CCL 11:44
PROVIDERS: ATTEND Internal Medicine Cardiovascular Disease
PROC: 5A2204Z Restoration of Cardiac Rhythm, Single (ICD-10-PCS; principal; 2019-04-24)
DX: I48.0 Paroxysmal atrial fibrillation (principal); I48.92 Unspecified atrial flutter; I10 Essential (primary) hypertension; E78.5 Hyperlipidemia, unspecified; G47.30 Sleep apnea, unspecified; Z79.01 Long term (current) use of anticoagulants; Z79.899 Other long term (current) drug therapy; Z88.2 Allergy status to sulfonamides; Z88.5 Allergy status to narcotic agent; Z88.7 Allergy status to serum and vaccine
CPT/HCPCS: 36415; 80048; 85025; 85610; 85730; 92960; J2704

== ENCOUNTER 2019-05-13 11:03 | Day surgery (SDC) | payer MEDICARE ==
[2019-05-10 12:22] VITALS: BMI 38.7
[2019-05-13] MEDS ORDERED: Lidocaine 1% w/Epinephrine 1:100K 20 ML VIAL ONE (11:24)
--- NOTE | 2019-05-13 13:32 | OP ---
DATE OF PROCEDURE: 05/13/2019 REASON FOR PROCEDURE: Mr. Payan is a 79-year-old man with history of paroxysmal atrial fibrillation/flutter, status post pulmonary venous isolation procedure on April 03, 2019, recurrent arrhythmias after that on flecainide use. LINQ implantable monitor is placed for further arrhythmia monitoring. DESCRIPTION OF PROCEDURE: The patient received no sedation, but the left precordial area was prepped, draped, and anesthetized using subcutaneous lidocaine at the fourth intercostal space. An incision was made with a [employer] tool kit. The [employer] LINQ recorder was implanted without difficulty. Closure was performed with Steri-Strips and Dermabond. Measurements were adequate. CONCLUSION: Successful LINQ recorder implantation. PLAN: Routine monitoring. Job ID: [id number]
== END 2019-05-13 12:56 | disposition home or self-care (01) ==
LOC: CCL 11:03
PROVIDERS: ATTEND Internal Medicine Cardiovascular Disease
PROC: 0JH632Z Insertion of Monitoring Device into Chest Subcutaneous Tissue and Fascia, Percutaneous Approach (ICD-10-PCS; principal; 2019-05-13)
DX: I48.0 Paroxysmal atrial fibrillation (principal); I48.4 Atypical atrial flutter; G47.30 Sleep apnea, unspecified; I10 Essential (primary) hypertension; E78.5 Hyperlipidemia, unspecified; Z79.01 Long term (current) use of anticoagulants; Z79.899 Other long term (current) drug therapy; Z88.2 Allergy status to sulfonamides; Z88.5 Allergy status to narcotic agent; Z88.7 Allergy status to serum and vaccine; Z99.89 Dependence on other enabling machines and devices; Z98.890 Other specified postprocedural states
CPT/HCPCS: 33285; C1764; J2001

== ENCOUNTER 2019-07-05 06:38 | Day surgery (SDC) | payer MEDICARE ==
[2019-07-04 16:51] VITALS: BMI 41.3
[2019-07-05 08:05] LABS: #Basophils 0.1 thou/uL (0.0-0.2); #Eosinphils 0.3 thou/uL (0.0-0.7); #Lymphocytes 2.1 thou/uL (1.20-3.40); #Monocytes 0.8 thou/uL (0.11-0.59); #Neutrophils 5.4 thou/uL (1.40-6.50); %Basophils 0.9 % (0.0-1.0); %Eosinophils 3.8 % (0.0-10.0); %Lymphocytes 23.7 % (21.0-51.0); %Monocytes 8.8 % (0.0-10.0); %Neutrophils 62.7 % (42.0-75.0); Hemoglobin 15.9 g/dL (14.0-18.0); Mean Corpuscular HGB CONC 32.1 g/dL (32.0-36.0); Mean Corpuscular Hemoglobin 28.7 pg (27.0-31.0); Mean Corpuscular Volume 89.7 fL (78.0-98.0); Mean Platelet Volume 7.4 fL (7.4-10.4); Platelet Count 270 thou/uL (130-400); RBC Distribution Width 14.3 % (11.5-14.5); Red Blood Cell (RBC) Count 5.52 mill/uL (4.70-6.10); White Blood Cell (WBC) Count 8.7 thou/uL (4.8-10.8)
[2019-07-05 08:08] LABS: INR-International Normal Ratio 1.4; PTT 33.8 SEC (22.9-36.1); Prothrombin Time 16.7 SEC (12.0-14.7)
[2019-07-05 08:32] LABS: Anion Gap 14 mmol/L (10-20); BUN (Urea Nitrogen) 13 mg/dL (8.4-25.7); Calc. Creatinine Clearance 119 mL/min (70-130); Calcium 9.2 mg/dL (7.8-10.44); Carbon Dioxide 26 mmol/L (23-31); Chloride 105 mmol/L (98-107); Estimated GFR-MDRD 78; Glucose 115 mg/dL (83-110); Potassium 4.1 mmol/L (3.5-5.1); Sodium 141 mmol/L (136-145)
--- NOTE | 2019-07-05 15:00 | OP ---
DATE OF PROCEDURE: 07/05/2019 HISTORY: Mr. Payan is a 79-year-old gentleman, who has had an ablation for atrial fibrillation, who presents with an atypical atrial flutter and was scheduled for a cardioversion. He is in the inflammatory phase post ablation with that procedure being done less than 3 months ago. He reports that he has been on his oral anticoagulation. PROCEDURE TO BE PERFORMED: Direct current cardioversion. MEDICATIONS: As per Anesthesia. COMPLICATIONS: None. ESTIMATED BLOOD LOSS: None. DESCRIPTION OF PROCEDURE: After informed consent was obtained, the patient was confirmed that he was on oral anticoagulation with Eliquis twice a day as directed. He reports being diligent with his Eliquis. The patient was sedated. Anteroposterior pads were in place and a synchronized 300 Joules cardioversion performed restoring him back to sinus mechanism. IMPRESSION: Successful direct current cardioversion. Restored sinus mechanism. RECOMMENDATIONS: Follow up with Dr. Flood as scheduled. Job ID: [id number]
--- NOTE | 2019-07-05 16:56 | EKG ---
Test Reason : PREOP Blood Pressure : / mmHG Vent. Rate : 105 BPM Atrial Rate : 105 BPM P-R Int : 000 ms QRS Dur : 134 ms QT Int : 402 ms P-R-T Axes : 000 098 025 degrees QTc Int : 531 ms Sinus tachycardia Right bundle branch block ST elevation consider inferior injury or acute infarct ACUTE RI / STEMI Abnormal ECG When compared with ECG of 04-APR-2019 08:48, Vent. rate has increased BY 36 BPM Right bundle branch block is now Present Confirmed by DR. Juan ROBERTO (3) on 07/05/2019 4:55:49 PM Referred By: VAN Confirmed By:DR. Juan ROBERTO
--- NOTE | 2019-07-06 08:17 | DIS ---
DATE OF ADMISSION: 07/05/2019 DATE OF DISCHARGE: 07/05/2019 HISTORY: Mr. Payan is a 79-year-old gentleman with history of atrial arrhythmias, underwent an ablation less than 3 months ago. This is an atypical atrial flutter. He comes in for cardioversion today. HOSPITAL COURSE: He was taken to the PACU area. Anterior and posterior pads were placed. He confirmed he was on his oral anticoagulation and a cardioversion performed without difficulty. Sinus mechanism was restored. He will be discharge in good condition. Advised to follow heart healthy diet. Followup in 4 weeks. Activity as tolerated. PRINCIPAL DIAGNOSIS: Atypical atrial flutter. PRINCIPAL PROCEDURE: DC cardioversion. Job ID: [id number]
== END 2019-07-05 10:12 | disposition home or self-care (01) ==
LOC: CCL 06:38
PROVIDERS: ATTEND Internal Medicine Cardiovascular Disease
PROC: 5A2204Z Restoration of Cardiac Rhythm, Single (ICD-10-PCS; principal; 2019-07-05)
DX: I48.4 Atypical atrial flutter (principal); I12.9 Hypertensive chronic kidney disease with stage 1 through stage 4 chronic kidney disease, or unspecified chronic kidney disease; N18.9 Chronic kidney disease, unspecified; G47.33 Obstructive sleep apnea (adult) (pediatric); E78.5 Hyperlipidemia, unspecified; E66.9 Obesity, unspecified; Z68.41 Body mass index [BMI] 40.0-44.9, adult; Z79.01 Long term (current) use of anticoagulants; Z79.899 Other long term (current) drug therapy; Z88.2 Allergy status to sulfonamides; Z88.5 Allergy status to narcotic agent; Z88.8 Allergy status to other drugs, medicaments and biological substances
CPT/HCPCS: 80048; 85025; 85610; 85730; 92960; 93005; 93010

== ENCOUNTER 2019-12-16 08:45 | Outpatient (CLI) | payer MEDICARE ==
[2019-12-16 16:18] LABS: Hemoglobin 16.3 g/dL (14.0-18.0); Mean Corpuscular HGB CONC 32.4 g/dL (32.0-36.0); Mean Corpuscular Hemoglobin 30.6 pg (27.0-31.0); Mean Corpuscular Volume 94.3 fL (78.0-98.0); Mean Platelet Volume 7.3 fL (7.4-10.4); Platelet Count 281 thou/uL (130-400); RBC Distribution Width 13.5 % (11.5-14.5); Red Blood Cell (RBC) Count 5.32 mill/uL (4.70-6.10); White Blood Cell (WBC) Count 10.2 thou/uL (4.8-10.8)
[2019-12-16 16:25] LABS: INR-International Normal Ratio 1.1; PTT 31.2 SEC (22.9-36.1); Prothrombin Time 14.3 SEC (12.0-14.7)
[2019-12-16 16:43] LABS: Anion Gap 17 mmol/L (10-20); BUN (Urea Nitrogen) 14 mg/dL (8.4-25.7); Calc. Creatinine Clearance 0 mL/min (70-130); Calcium 9.1 mg/dL (7.8-10.44); Carbon Dioxide 25 mmol/L (23-31); Chloride 103 mmol/L (98-107); Estimated GFR-MDRD Greater than 90; Glucose 141 mg/dL (83-110); Potassium 4.6 mmol/L (3.5-5.1); Sodium 140 mmol/L (136-145)
--- NOTE | 2019-12-17 11:58 | EKG ---
Test Reason : Blood Pressure : / mmHG Vent. Rate : 138 BPM Atrial Rate : 067 BPM P-R Int : 000 ms QRS Dur : 120 ms QT Int : 324 ms P-R-T Axes : 000 000 166 degrees QTc Int : 490 ms regular wide complex tachycardia without well defined P waves Right bundle branch block pattern Inferior infarct , age undetermined T wave abnormality, consider lateral ischemia or digitalis effect Abnormal ECG When compared with ECG of 05-JUL-2019 08:08, Atrial fibrillation has replaced Sinus rhythm Inferior infarct is now Present ST no longer elevated in Lateral leads Confirmed by DR. Juan ROBERTO (3) on 12/17/2019 11:57:57 AM Referred By: [facility] Confirmed By:DR. Juan ROBERTO
== END 2019-12-16 08:46 | disposition home or self-care (01) ==
LOC: LABBT 08:45
PROVIDERS: ATTEND Internal Medicine Cardiovascular Disease
DX: Z01.818 Encounter for other preprocedural examination (principal); I48.91 Unspecified atrial fibrillation
CPT/HCPCS: 80048; 85027; 85610; 85730; 93005; 93010

== ENCOUNTER 2019-12-18 08:38 | Observation (INO) | payer MEDICARE ==
[2019-12-16 16:16] VITALS: BMI 41.0
[2019-12-18] MEDS ORDERED: Heparin 10,000 UNITS/1 ML VIAL ONE ×3 (09:49→12:44)
[2019-12-18] MEDS ORDERED: Lidocaine 1% (PF) 30 ML VIAL ONE (09:50)
[2019-12-18] MEDS ORDERED: PHENYLEPHRINE-NS 100 MCG/ML 10 ML SYRINGE ONE (10:03)
[2019-12-18] MEDS ORDERED: Dexamethasone 20 MG/5 ML VIAL ONE (10:03)
[2019-12-18] MEDS ORDERED: Esmolol 100 MG/10 ML VIAL ONE (10:03)
[2019-12-18] MEDS ORDERED: Rocuronium Bromide 10 MG/ML (10ML VIAL) ONE (10:03)
[2019-12-18] MEDS ORDERED: diphenhydrAMINE 50 MG/ML VIAL ONE (10:03)
[2019-12-18] MEDS ORDERED: Ondansetron PF 4 MG/2 ML Vial ONE (10:03)
[2019-12-18] MEDS ORDERED: PROPOFOL 200 MG/20 ML VIAL ONE (10:03)
[2019-12-18] MEDS ORDERED: Fentanyl 100 MCG/2 ML VIAL ONE (10:17)
[2019-12-18] MEDS ORDERED: Rocuronium Bromide 50 MG/5 ML VIAL ONE (10:28)
[2019-12-18] MEDS ORDERED: SUGAMMADEX SODIUM 500 MG/5 ML VIAL ONE (10:28)
[2019-12-18] MEDS ORDERED: Heparin 25,000 units/D5W 500 ML ONE (11:45)
[2019-12-18] MEDS ORDERED: Phenylephrine 10 MG/ML VIAL ONE (12:05)
[2019-12-18] MEDS ORDERED: Isoproterenol 0.2 MG/1 ML AMP ONE (12:44)
[2019-12-18] MEDS ORDERED: Protamine Sulfate 50 MG/5 ML VIAL ONE ×2 (13:26)
[2019-12-18] MEDS ORDERED: PROPOFOL 20 ML ONE (13:45)
[2019-12-18] MEDS ORDERED: Polyethylene Glycol 3350 17 GM Packet PO PRN (15:31)
[2019-12-18] MEDS: Sucralfate 1 GM TAB PO SCH ×2 (18:50→23:05)
[2019-12-18] MEDS: Apixaban 5 MG TAB PO SCH (20:48)
[2019-12-18] MEDS: Metoprolol Tartrate 25 MG TAB PO SCH (20:48)
[2019-12-18] MEDS ORDERED: Ramipril 5 MG CAP PO SCH (21:00)
[2019-12-18] MEDS ORDERED: Atorvastatin Calcium 40 MG TAB PO SCH (21:00)
[2019-12-19] MEDS: Sucralfate 1 GM TAB PO SCH (06:20)
[2019-12-19 08:15] VITALS: BP 117/56; TEMP 98.2
[2019-12-19] MEDS ORDERED: Allopurinol 300 MG TAB PO SCH (09:00)
[2019-12-19] MEDS: Apixaban 5 MG TAB PO SCH (09:36)
[2019-12-19] MEDS: Metoprolol Tartrate 25 MG TAB PO SCH (09:36)
--- NOTE | 2019-12-19 09:40 | OP ---
DATE OF PROCEDURE: 12/18/2019 PROCEDURE PERFORMED: Electrophysiology study and radiofrequency ablation. REFERRING PHYSICIAN: REASON FOR PROCEDURE: Mr. Payan is a pleasant 79-year-old man with prior history of persistent atrial fibrillation post pulmonary venous antrum isolation in 03/26/2019 and recurrences requiring cardioversion on 05/13/2019 and 06/2019, suppressed with flecainide which was eventually weaned, but now had recurrence again based on his loop recorder monitor. He has been chronically anticoagulated with Eliquis and here for repeat left and right atrial ablation procedure. DESCRIPTION OF PROCEDURE: The patient received general anesthesia by Anesthesia specialist. The left and right femoral venous area was prepped and draped and anesthetized using subcutaneous lidocaine, and under ultrasound guidance, both femoral veins were cannulated on the left side, an 11-Kyrgyz sheath was introduced, through which a intracardiac echocardiogram probe was advanced to the right atrium and this was used to monitor the transeptal procedure, the pericardial space, as well as the catheter manipulation throughout the case. Also through the left groin, a Preface sheath was advanced into the inferior vena cava, through which a 20- pole duo-Deca catheter was advanced to the right atrium and CS position. Through the right groin access, two 8-Kyrgyz short sheaths were introduced, through which a ThermoCool SFST catheter was advanced to the right atrium. 3D map of the right atrium was obtained in the his bundle, CS, and the cavotricuspid isthmus location. Baseline EP study was also obtained. Following findings were noted. Baseline rhythm was an atrial flutter, appeared to be typical isthmus dependent in morphology, the proximal to distal CS activation. Overdrive pacing at the isthmus demonstrated entrainment and also post-pacing interval was equal to the tachycardia cycle length, which was 240 milliseconds. This suggested isthmus dependency, cavotricuspid isthmus ablation was performed. During ablation, the flutter terminated. Proximal CS pacing was performed, demonstrating the cavotricuspid isthmus block and the 3D activation map was performed at that time. Following that, the transseptal puncture was performed after the 8-Kyrgyz sheaths on the right groin exchanged to 2 SL1 transseptal sheaths. A powered MessageCast catheter was used for transseptal puncture under the cine and echocardiographic guidance. Prior to the puncture, IV heparin was administered in a bolus and a drip fashion, which was periodically checked, keeping ACTs over 350. Through the SL1 sheaths, a ThermoCool SFST catheter and a 20-pole Lasso catheter advanced to the left atrium. 3D map of left atrium was obtained and voltage map was noted. Adequate isolation with only far field signals were seen on the left superior and also on the right inferior vein. The radiofrequency ablation lesions were delivered at the right pulmonary venous septal area. Also, the right superior pulmonary vein was re-isolated with a single burn by pulmonary venous stephan. On the left side, also ablation was necessary in the anterior segment of the left inferior pulmonary vein for the isolation. The posterior wall was not isolated. Roof line was re-ablated and also the inferior line was re-ablated. Additional lesions were placed in the posterior wall throughout the procedure. An esophageal temperature probe was monitored to avoid excessive heating of the esophagus on areas where heating was observed. Additional irrigation was performed to reduce the impact. At the end of the case, we were able to isolate all 4 pulmonary veins on a posterior wall. With burst atrial pacing, an atrial tachycardia with cycle length of 360 milliseconds were induced, which had a long post pacing intervals in the roof and the appendage and inferior mitral isthmus area. Short post pacing interval and termination were noted after overdrive pacing in the inferobasal area where additional ablation lesions were placed and this tachycardia was not seen to be re-induced later. Isuprel was also administered and any reconnection re-ablated. LV pacing was performed after advancing the ablation catheter in the LV. Basic EP study was also obtained. Following findings were noted. Baseline AV Wenckebach cycle length was 330 millisecond after termination of atrial flutter in sinus rhythm. 400 milliseconds with concentric retrograde VA conduction. AV esau ERP is 600/260 milliseconds with dual AV esau physiology present, but no echo beats were observed and no AVNRT was inducible. The QRS duration 127 milliseconds, HV 41 milliseconds. It was not changed with the procedure. The catheter was removed through the left atrium and heparin was stopped and reversed with protamine. The catheter was removed from the body, and prior to that, intracardiac echo was used to recheck the pericardial space where there was no significant change in baseline small pericardial effusion noted. Also, the fluoroscopy did not reveal a change in cardiac silhouette. The vascular access sites were closed with Vascade closure on all 4 points. The patient left the vp lab, regained consciousness, extubated. A total of 24 ablation lesions at 40 cowart delivered in the cavotricuspid isthmus as well as the left atrium with total duration of 14 minutes and 28 seconds at 40 cowart. CONCLUSION: 1. Baseline typical isthmus dependent atrial flutter status post cavotricuspid isthmus ablation. 2. Successful re-isolation of the left inferior and right superior pulmonary veins. The other 2 pulmonary veins were remained isolated from a prior procedure. 3. Reisolation of a posterior wall was performed. 4. Additional atrial tachycardia with ablations placed in the inferobasal wall. 5. Normal sinus and AV esau function. 6. No evidence of accessory pathway. 7. Dual AV esau physiology without inducible atrioventricular esau reentrant tachycardia noted. PLAN: Resume anticoagulation or flecainide and monitor for recurrent atrial arrhythmias. Job ID: [id number] TALIB
--- NOTE | 2019-12-19 16:44 | EKG ---
Test Reason : Blood Pressure : / mmHG Vent. Rate : 075 BPM Atrial Rate : 075 BPM P-R Int : 160 ms QRS Dur : 132 ms QT Int : 440 ms P-R-T Axes : 054 073 036 degrees QTc Int : 491 ms Normal sinus rhythm Indeterminate axis Right bundle branch block Abnormal ECG When compared with ECG of 16-DEC-2019 15:54, Previous ECG has undetermined rhythm, needs review Criteria for Inferior infarct are no longer Present ST no longer elevated in Inferior leads T wave inversion no longer evident in Lateral leads Confirmed by DR. Juan ROBERTO (3) on 12/19/2019 4:43:39 PM Referred By: CHARLES Confirmed By:DR. Juan ROBERTO
--- NOTE | 2019-12-19 16:49 | EKG ---
Test Reason : Blood Pressure : / mmHG Vent. Rate : 066 BPM Atrial Rate : 066 BPM P-R Int : 162 ms QRS Dur : 138 ms QT Int : 466 ms P-R-T Axes : 055 016 031 degrees QTc Int : 488 ms Normal sinus rhythm Right bundle branch block Abnormal ECG When compared with ECG of 18-DEC-2019 15:43, (Unconfirmed) No significant change was found Confirmed by DR. Juan ROBERTO (3) on 12/19/2019 4:49:03 PM Referred By: CHARLES Confirmed By:DR. Juan ROBERTO
[2019-12-20] MEDS ORDERED: Furosemide 20 MG TAB PO SCH (09:00)
--- NOTE | 2019-12-23 10:54 | DIS ---
DATE OF ADMISSION: 12/18/2019 DATE OF DISCHARGE: 12/19/2019 ADMITTING PHYSICIAN: Trae Flood MD DIAGNOSIS: Atrial fibrillation. PROCEDURE PERFORMED: Electrophysiology study with radiofrequency ablation. HISTORY OF PRESENT ILLNESS: Mr. 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 He was on suppressive flecainide, which was eventually weaned following his 3-month recovery time, but now has had recurrence based on his loop recorder tracings. He has been chronically anticoagulated with Eliquis and was taken to the EP lab for repeat electrophysiology study and atrial ablation. PROCEDURES PERFORMED: Electrophysiology study, 3-dimensional mapping and ablation. CTI dependent typical atrial flutter successfully ablated, successful re-isolation of the left inferior and right superior pulmonary veins. The other two pulmonary veins remained electrically silent from a prior ablation. Re-isolation of the posterior wall was performed. An additional atrial tachycardia was mapped to the inferior basal wall and was ablated. Normal sinus and AV esau function. No evidence of accessory pathway. Dual AV esau physiology was seen without inducibility for AVNRT. SUBJECTIVE: Mr. Payan is feeling well. He denies any heart racing, palpitations, chest pain, pressure, syncope, near syncope, stroke, stroke-like symptoms, or bleeding at the groin sites. He is not having any chest pain or shortness of breath. He is eager and ready to discharge home. OBJECTIVE: VITAL SIGNS: Temperature 98.2, pulse 71, blood pressure 117/56, respirations 16, and oxygen is 94% on room air. GENERAL: The patient is alert, oriented. Speech is clear. Affect is appropriate. He is no apparent distress at time of the exam. NECK: Supple without jugular venous distention. There is no lymphadenopathy. Trachea is midline. LUNGS: Clear to auscultation bilaterally without wheezes, crackles, or rhonchi. Respirations are even and unlabored. HEART: Rate is irregularly irregular with crisp S1 and S2. PMI is nondisplaced. ABDOMEN: Soft, nontender without palpable masses. EXTREMITIES: Warm and dry to touch. Well perfused without clubbing, cyanosis, or edema. Bilateral groin sites are stable. No evidence of hematoma or bleeding complications. NEUROLOGIC: Grossly intact and gait is stable. DATABASE: Telemetry and EKG shows sinus rhythm with a little to no ectopy and no early recurrence of arrhythmias. DISCHARGE INSTRUCTIONS: Follow postablation guidelines per packet provided. No soaking baths or lifting more than 10 pounds or strenuous activity for one week, then may resume gradually as tolerated. DISCHARGE MEDICATIONS: 1. MiraLAX as needed daily. 2. Ostera 2000 units p.o. daily. 3. Ramipril q.p.m. 4. Protonix 20 mg daily. 5. Furosemide 40 mg every other day. 6. Lipitor daily. 7. Eliquis 5 mg b.i.d. 8. Zyloprim q.a.m. 9. New prescription provided for Carafate 1 g q.6 hours x2 weeks. Mr. Payan is doing well post ablation, he is maintaining sinus rhythm. He is already on a PPI therapy at home and also Lasix. He has been given instructions that he may take additional Lasix up to additional 40 mg a day if he is experiencing fluid retention or shortness of breath. I gave him a prescription for potassium 20 mEq, which he can take with his Lasix for any additional doses. I have instructed him to continue on his Protonix for at least a month post ablation. He will follow up in 6 weeks or sooner if symptoms dictate. CONDITION AT DISCHARGE: Stable. Job ID: [id number]
== END 2019-12-19 11:48 | disposition home or self-care (01) ==
LOC: CCL 08:38 → 2SW 15:26
PROVIDERS: ADMIT Internal Medicine Cardiovascular Disease; ATTEND Internal Medicine Cardiovascular Disease
PROC: 02583ZZ Destruction of Conduction Mechanism, Percutaneous Approach (ICD-10-PCS; principal; 2019-12-18)
PROC: 4A023FZ Measurement of Cardiac Rhythm, Percutaneous Approach (ICD-10-PCS; 2019-12-18)
PROC: 4A0234Z Measurement of Cardiac Electrical Activity, Percutaneous Approach (ICD-10-PCS; 2019-12-18)
PROC: 02K83ZZ Map Conduction Mechanism, Percutaneous Approach (ICD-10-PCS; 2019-12-18)
DX: I48.19 Other persistent atrial fibrillation (principal); I48.92 Unspecified atrial flutter; G47.33 Obstructive sleep apnea (adult) (pediatric); I12.9 Hypertensive chronic kidney disease with stage 1 through stage 4 chronic kidney disease, or unspecified chronic kidney disease; N18.2 Chronic kidney disease, stage 2 (mild); E78.5 Hyperlipidemia, unspecified; E66.9 Obesity, unspecified; Z68.41 Body mass index [BMI] 40.0-44.9, adult; Z79.01 Long term (current) use of anticoagulants; Z79.899 Other long term (current) drug therapy; Z88.2 Allergy status to sulfonamides; Z88.5 Allergy status to narcotic agent; Z88.7 Allergy status to serum and vaccine; Z88.8 Allergy status to other drugs, medicaments and biological substances; Z98.890 Other specified postprocedural states
CPT/HCPCS: 76942; 85347 ×2; 93005 ×2; 93613; 93622; 93623; 93656; 93662; C1731; C1732 ×3; C1759; C1769; G0378 ×2; 93010; J1100; J1200; J1644; J2001; J2370; J2405; J2704; J2720; J3010

== ENCOUNTER 2022-05-23 20:57 | Observation (INO) | payer MEDICARE ==
[2022-05-23] MEDS ORDERED: Oxymetazoline HCl 0.05% (30 ML BOT) ONE (21:18)
[2022-05-24] MEDS ORDERED: Morphine 4 MG/ML VIAL ONE ×2 (00:09→01:54)
[2022-05-24] MEDS ORDERED: Ondansetron PF 4 MG/2 ML Vial ONE (00:09)
[2022-05-24 00:18] LABS: #Basophils 0.1 thou/uL (0.0-0.2); #Eosinphils 0.5 thou/uL (0.0-0.7); #Lymphocytes 2.7 thou/uL (1.20-3.40); #Neutrophils 9.4 thou/uL (1.40-6.50); %Basophils 0.4 % (0.0-1.0); %Eosinophils 3.5 % (0.0-10.0); %Monocytes 7.4 % (0.0-10.0); %Neutrophils 68.7 % (42.0-75.0); Hemoglobin 15.1 g/dL (14.0-18.0); Mean Corpuscular HGB CONC 33.1 g/dL (32.0-36.0); Mean Corpuscular Volume 96.7 fL (78.0-98.0); Mean Platelet Volume 6.9 fL (7.4-10.4); Platelet Count 265 thou/uL (130-400); RBC Distribution Width 13.3 % (11.5-14.5); Red Blood Cell (RBC) Count 4.73 mill/uL (4.70-6.10); White Blood Cell (WBC) Count 13.7 thou/uL (4.8-10.8)
[2022-05-24] MEDS ORDERED: Tranexamic Acid 1,000 MG/10 ML VIAL ONE ×2 (00:25→01:47)
[2022-05-24 00:29] LABS: INR-International Normal Ratio 1.1; PTT 31.1 sec (22.9-36.1); Prothrombin Time 14.1 sec (12.0-14.7)
[2022-05-24 00:37] LABS: Anion Gap 15 mmol/L (10-20); BUN (Urea Nitrogen) 18 mg/dL (8.4-25.7); Calc. Creatinine Clearance 0 mL/min (70-130); Calcium 9.1 mg/dL (7.8-10.44); Carbon Dioxide 27 mmol/L (23-31); Chloride 104 mmol/L (98-107); Estimated GFR 92; Glucose 115 mg/dL (83-110); Potassium 3.9 mmol/L (3.5-5.1); Sodium 142 mmol/L (136-145)
[2022-05-24] MEDS ORDERED: CEFAZOLIN 2 GM VIAL ONE (00:46)
[2022-05-24 03:15] VITALS: BMI 34.9
[2022-05-24] MEDS ORDERED: Ondansetron PF 4 MG/2 ML Vial IVP PRN (03:30)
[2022-05-24] MEDS ORDERED: Ondansetron ODT 4 MG TAB SL PRN (03:30)
[2022-05-24] MEDS: Acetaminophen 325 MG TAB PO PRN ×3 (05:35→15:36)
[2022-05-24 07:53] VITALS: BP 124/74; TEMP 97.6
[2022-05-24 11:12] LABS: Hemoglobin 14.4 g/dL (14.0-18.0); Platelet Count 254 thou/uL (130-400)
== END 2022-05-24 15:54 | disposition home or self-care (01) ==
LOC: ERS 20:57 → INTOOBSV 05-24 01:35 → T4-A 05-24 01:35
PROVIDERS: ADMIT Internal Medicine; ATTEND Internal Medicine
DX: R04.0 Epistaxis (principal); I48.20 Chronic atrial fibrillation, unspecified; I10 Essential (primary) hypertension; G47.30 Sleep apnea, unspecified; S02.2XXA Fracture of nasal bones, initial encounter for closed fracture; R73.03 Prediabetes; M10.9 Gout, unspecified; Z87.11 Personal history of peptic ulcer disease; Z79.01 Long term (current) use of anticoagulants; Z79.82 Long term (current) use of aspirin; Z79.84 Long term (current) use of oral hypoglycemic drugs; Z79.899 Other long term (current) drug therapy; Z88.2 Allergy status to sulfonamides; Z88.1 Allergy status to other antibiotic agents; Z88.5 Allergy status to narcotic agent; Z88.7 Allergy status to serum and vaccine; W01.0XXA Fall on same level from slipping, tripping and stumbling without subsequent striking against object, initial encounter; Y93.K1 Activity, walking an animal
CPT/HCPCS: 30903; 36415; 70450; 70486; 72125; 80048; 85014; 85018; 85025; 85049; 85610; 85730; 86850; 86900; 86901; 96365; 96367; 96375; 96376; J0690; J2270; J2405

== ENCOUNTER 2022-09-06 11:36 | Outpatient (CLI) | payer MEDICARE | END 2022-09-06 11:37 | disposition home or self-care (01) | LOC: SCSRAD 11:36 | PROVIDERS: ATTEND Family Medicine | DX: M51.36 Other intervertebral disc degeneration, lumbar region (principal); M47.816 Spondylosis without myelopathy or radiculopathy, lumbar region | CPT/HCPCS: 72120 ==

== ENCOUNTER 2023-01-31 09:51 | Outpatient (CLI) | payer MEDICARE ==
[2023-01-31 11:05] LABS: #Basophils 0.1 10x3/uL (0.0-0.2); #Eosinphils 0.7 10x3/uL (0.0-0.5); #Monocytes 1.2 10x3/uL (0.0-1.1); #Neutrophils 5.5 10x3/uL (1.5-8.4); %Basophils 0.9 % (0.0-2.0); %Eosinophils 6.6 % (0.0-6.0); %Lymphocytes 24.4 % (18.0-47.0); %Neutrophils 55.7 % (40.0-75.0); Hemoglobin 14.7 g/dL (13.5-17.5); Mean Corpuscular HGB CONC 32.1 g/dL (32.0-36.0); Mean Corpuscular Hemoglobin 29.9 pg (27.0-33.0); Mean Corpuscular Volume 93.1 fl (81.2-95.1); Mean Platelet Volume 9.5 fl (7.4-10.4); Platelet Count 315 10x3/uL (150-450); RBC Distribution Width 13.9 % (11.5-14.5); Red Blood Cell (RBC) Count 4.92 10x6/uL (4.32-5.72); White Blood Cell (WBC) Count 9.8 10x3/uL (3.5-10.5)
[2023-01-31 11:27] LABS: ALT (SGPT) 18 U/L (8-55); AST (SGOT) 19 U/L (5-34); Albumin 4.1 g/dL (3.4-4.8); Alkaline Phosphatase 88 U/L (40-110); Anion Gap 15 mmol/L (10-20); BUN (Urea Nitrogen) 14 mg/dL (8.4-25.7); Bilirubin, Total 0.5 mg/dL (0.2-1.2); Calc. Creatinine Clearance 0 mL/min (70-130); Carbon Dioxide 27 mmol/L (23-31); Chloride 101 mmol/L (98-107); Estimated GFR 89; Globulin 2.6 g/dL (2.4-3.5); Glucose 87 mg/dL (83-110); Potassium 4.1 mmol/L (3.5-5.1); Protein, Total 6.7 g/dL (5.8-8.1); Sodium 139 mmol/L (136-145)
== END 2023-01-31 09:52 | disposition home or self-care (01) ==
LOC: LABBT 09:51
PROVIDERS: ATTEND Internal Medicine Cardiovascular Disease
DX: Z01.812 Encounter for preprocedural laboratory examination (principal); R06.02 Shortness of breath
CPT/HCPCS: 80053; 85025

== ENCOUNTER 2023-02-03 05:41 | Day surgery (SDC) | payer MEDICARE ==
[2023-02-01 12:44] VITALS: BMI 35.9
[2023-02-03] MEDS ORDERED: Lidocaine 1% PF 5 ML VIAL ONE (06:59)
[2023-02-03] MEDS ORDERED: Heparin 10,000 UNITS/ 10 ML VIAL ONE ×2 (06:59→09:28)
[2023-02-03] MEDS ORDERED: Verapamil 5 MG/2 ML VIAL ONE (06:59)
[2023-02-03] MEDS ORDERED: Nitroglycerin 50 MG/250 ML BOT 250 ML ONE (06:59)
[2023-02-03] MEDS ORDERED: Lidocaine 1% (PF) 30 ML VIAL ONE (06:59)
[2023-02-03 07:33] LABS: Cardiac Risk 3.3 (Less than 4.5)
[2023-02-03] MEDS ORDERED: fentaNYL 50 mcg/mL 1 mL Vial ONE (08:32)
[2023-02-03] MEDS ORDERED: Midazolam HCl 2 mg/2 ml Vial ONE (08:32)
[2023-02-03] MEDS ORDERED: TICAGRELOR 90 MG TABLET ONE (09:30)
== END 2023-02-03 14:46 | disposition home or self-care (01) ==
LOC: CCL 05:41
PROVIDERS: ATTEND Internal Medicine Cardiovascular Disease
PROC: 4A023N7 Measurement of Cardiac Sampling and Pressure, Left Heart, Percutaneous Approach (ICD-10-PCS; principal; 2023-02-03)
PROC: B2111ZZ Fluoroscopy of Multiple Coronary Arteries using Low Osmolar Contrast (ICD-10-PCS; 2023-02-03)
DX: I25.10 Atherosclerotic heart disease of native coronary artery without angina pectoris (principal); I44.0 Atrioventricular block, first degree; I45.10 Unspecified right bundle-branch block; I35.1 Nonrheumatic aortic (valve) insufficiency; I87.2 Venous insufficiency (chronic) (peripheral); I48.0 Paroxysmal atrial fibrillation; I48.3 Typical atrial flutter; I10 Essential (primary) hypertension; E78.5 Hyperlipidemia, unspecified; Z87.891 Personal history of nicotine dependence; Z79.01 Long term (current) use of anticoagulants; Z79.82 Long term (current) use of aspirin; Z79.84 Long term (current) use of oral hypoglycemic drugs; Z79.899 Other long term (current) drug therapy; Z88.1 Allergy status to other antibiotic agents; Z88.2 Allergy status to sulfonamides; Z88.5 Allergy status to narcotic agent; Z88.7 Allergy status to serum and vaccine
CPT/HCPCS: 80061; 85347; 93005; J3010; 92928; 93458; 99152; 99153; J0153; J1644; J2001; J2250

== ENCOUNTER 2023-02-28 06:44 | Day surgery (SDC) | payer MEDICARE ==
[2023-02-27 08:55] VITALS: BMI 35.9
[2023-02-28] MEDS ORDERED: Lidocaine 1% w/Epinephrine 1:100K 20 ML VIAL ONE (07:00)
== END 2023-02-28 08:38 | disposition home or self-care (01) ==
LOC: CCL 06:44
PROVIDERS: ATTEND Internal Medicine Cardiovascular Disease
PROC: 0JPT32Z Removal of Monitoring Device from Trunk Subcutaneous Tissue and Fascia, Percutaneous Approach (ICD-10-PCS; principal; 2023-02-28)
PROC: 0JH632Z Insertion of Monitoring Device into Chest Subcutaneous Tissue and Fascia, Percutaneous Approach (ICD-10-PCS; 2023-02-28)
DX: Z45.09 Encounter for adjustment and management of other cardiac device (principal); I48.0 Paroxysmal atrial fibrillation; I48.3 Typical atrial flutter; I35.1 Nonrheumatic aortic (valve) insufficiency; I10 Essential (primary) hypertension; G47.33 Obstructive sleep apnea (adult) (pediatric); E78.5 Hyperlipidemia, unspecified; I87.2 Venous insufficiency (chronic) (peripheral); Z87.891 Personal history of nicotine dependence; Z79.01 Long term (current) use of anticoagulants; Z79.02 Long term (current) use of antithrombotics/antiplatelets; Z79.82 Long term (current) use of aspirin; Z79.84 Long term (current) use of oral hypoglycemic drugs; Z79.899 Other long term (current) drug therapy; Z88.2 Allergy status to sulfonamides; Z88.5 Allergy status to narcotic agent; Z88.7 Allergy status to serum and vaccine
CPT/HCPCS: 33285; 33286; C1764

== ENCOUNTER 2023-06-23 05:41 | Day surgery (SDC) | payer MEDICARE ==
[2023-06-21 12:04] VITALS: BMI 36.3
[2023-06-21 12:39] LABS: Hematocrit 45.5 % (38.8-50.0); Hemoglobin 14.8 g/dL (13.5-17.5); Mean Corpuscular HGB CONC 32.5 g/dL (32.0-36.0); Mean Corpuscular Hemoglobin 30.5 pg (27.0-33.0); Mean Corpuscular Volume 93.6 fl (81.2-95.1); Mean Platelet Volume 9.4 fl (7.4-10.4); Platelet Count 288 10x3/uL (150-450); RBC Distribution Width 13.7 % (11.5-14.5); Red Blood Cell (RBC) Count 4.86 10x6/uL (4.32-5.72); White Blood Cell (WBC) Count 9.3 10x3/uL (3.5-10.5)
[2023-06-21 12:55] LABS: Anion Gap 14 mmol/L (10-20); BUN (Urea Nitrogen) 15 mg/dL (8.4-25.7); Calc. Creatinine Clearance 118 mL/min (70-130); Calcium 8.8 mg/dL (7.8-10.44); Carbon Dioxide 27 mmol/L (23-31); Chloride 104 mmol/L (98-107); Estimated GFR 89; Glucose 91 mg/dL (83-110); Potassium 4.3 mmol/L (3.5-5.1); Sodium 141 mmol/L (136-145)
[2023-06-23] MEDS ORDERED: Ketamine 50 MG/ML (10ML VIAL) ONE (07:11)
[2023-06-23] MEDS ORDERED: PROPOFOL 200 MG/20 ML VIAL ONE (08:05)
[2023-06-23] MEDS ORDERED: Lidocaine 1% PF 5 ML VIAL ONE (08:05)
== END 2023-06-23 09:41 | disposition home or self-care (01) ==
LOC: SDC 05:41
PROVIDERS: ATTEND Internal Medicine Cardiovascular Disease
PROC: B246ZZ4 Ultrasonography of Right and Left Heart, Transesophageal (ICD-10-PCS; principal; 2023-06-23)
DX: I48.19 Other persistent atrial fibrillation (principal); I08.3 Combined rheumatic disorders of mitral, aortic and tricuspid valves; Z79.01 Long term (current) use of anticoagulants
CPT/HCPCS: 80048; 85027; 93312; J2704